=== PATIENT | male | born 1985 | race Caucasian/White ===

== ENCOUNTER 2019-02-22 07:33 | Emergency (ER) | payer OTHER ==
[2019-02-22 07:53] VITALS: BP 148/84
--- NOTE | 2019-02-22 08:05 | UC ---
Eye Complaint HPI - HPI Summary HPI Summary: 33-year-old male who had a foreign body removed from his eye last week from the tire servicer. He states a few days later he developed a stye to his upper eyelid which is almost resolved. He has some swelling to the upper eyelid this morning. No other recent illness no fever no chills. - History of Current Complaint Chief Complaint: UCSkin Stated Complaint: R EYE CONCERN Time Seen by Provider: 02/22/19 08:04 Hx Obtained From: Patient Onset/Duration: Gradual Onset Timing: Constant Severity Initially: Mild Severity Currently: Mild Pain Intensity: 4 Location of Injury: Other - No injury and patient is he had no injury he can recall which would have caused a foreign body in his right cornea. Aggravating Factor(s): Nothing Alleviating Factor(s): Nothing Associated Signs And Symptoms: Positive: Swelling - Very mild swelling of the upper eyelid. - Allergies/Home Medications Allergies/Adverse Reactions: Allergies Allergy/AdvReac Type Severity Reaction Status Date / Time No Known Allergies Allergy Verified 02/22/19 07:43 Home Medications: Home Medications Ryann 500 mg PO DAILY 02/22/19 [History Confirmed 02/22/19] Multivit-Minerals/FA/Lycopene [One Daily Tablet] 1 each PO DAILY 02/22/19 [ History Confirmed 02/22/19] Naproxen Sodium [Naproxen 220 mg] 500 mg PO QAM 02/22/19 [History Confirmed 05/03] PMH/Surg Hx/FS Hx/Imm Hx Previously Healthy: Yes - Surgical History Surgical History: None - Family History Known Family History: Positive: None, Other - Esophageal cancer - Social History Lives: With Family Alcohol Use: Rare Substance Use Type: None Smoking Status (MU): Former Smoker Type: Cigarettes Amount Used/How Often: 1/4 PPD Have You Smoked in the Last Year: Yes Household Exposure Type: Cigarettes - Immunization History Most Recent Tetanus Shot: UTD Vaccination Up to Date: Yes Review of Systems All Other Systems Reviewed And Are Negative: Yes Constitutional: Positive: Negative Eyes: Positive: Other - Minimal swelling to the upper eyelid over the past 2 days. Patient had a stye last week which is almost resolved of the right upper eyelid. She also had a foreign body removed from the right cornea inferior aspect and that has resolved without problems. Is Patient Immunocompromised?: No Physical Exam Triage Information Reviewed: Yes Appearance: Well-Appearing, No Pain Distress, Well-Nourished Vital Signs: Initial Vital Signs Temp 97.5 F 02/22/19 07:46 Pulse 59 02/22/19 07:46 Resp 18 02/22/19 07:46 BP 148/84 02/22/19 07:46 Pulse Ox 100 02/22/19 07:46 Vital Signs Reviewed: Yes Eyes: Positive: Conjunctiva Clear, Other: - PERRLA, EOMI, there is a very small resolving stye to the right upper eyelid, up under the right upper eyelid there is a small reddened ulceration but no secondary skin infection and no drainage. The upper eyelid is minimally swollen with mild redness but is not warm to touch. Psychological Exam: Normal Skin Exam: Normal Eye Complaint Course/Dx - Course Course Of Treatment: Patient is comfortable here. He has been to a local tire servicer last week and I advised him to return there in Sunday for recheck if he feels no better. I believe the small ulceration is or associated with the stye formation and not with the foreign body that he had in his inferior cornea. - Differential Dx/Diagnosis Provider Diagnosis: Hordeolum externum right upper eyelid Discharge - Sign-Out/Discharge Documenting (check all that apply): Patient Departure All imaging exams completed and their final reports reviewed: No Studies - Discharge Plan Condition: Good Disposition: HOME Prescriptions: Tobramycin 0.3% OPHTH.ELBERT* 1 drop RIGHT EYE Q4H 7 Days #1 btl Patient Education Materials: Miguel (ED) Referrals: Kylie Silva NP [Primary Care Provider] - Additional Instructions: Follow up with your ophthamologist Sunday if no improvement. Avoid rubbing your eye - Billing Disposition and Condition Condition: GOOD Disposition: Home
== END 2019-02-22 08:10 | disposition home or self-care (01) ==
LOC: UCCORT 07:33
DX: H00.011 Hordeolum externum right upper eyelid (principal); Z87.891 Personal history of nicotine dependence
CPT/HCPCS: 99212; G0463

== ENCOUNTER 2019-04-28 07:53 | Emergency (ER) | payer OTHER ==
[2019-04-28 08:17] VITALS: BP 143/94
--- NOTE | 2019-04-28 09:49 | UC ---
Skin Complaint HPI - HPI Summary HPI Summary: Nations a 33-year-old gentleman who suggested he was stung above his regular radiologist. Patient states he's had progressive pain and swelling from the ear striding down his right face and jaw. Patient without any difficulty breathing. No wheezing. No lightheaded. No nausea vomiting. Patient took Claritin this morning. Patient hasn't taken anything else for pain. Patient without any difficulties swallowing. Patient medications reviewed this visit. - History of Current Complaint Chief Complaint: UCAllergicReaction Time Seen by Provider: 04/28/19 08:20 Stated Complaint: BEE STING, ALLERGIC REACTION Hx Obtained From: Patient, Family/Embryology Professor, Other: - Patient's by phone. Pain Intensity: 5 Pain Scale Used: 0-10 Numeric - Allergy/Home Medications Allergies/Adverse Reactions: Allergies Allergy/AdvReac Type Severity Reaction Status Date / Time No Known Allergies Allergy Verified 04/28/19 08:17 PMH/Surg Hx/FS Hx/Imm Hx Previously Healthy: Yes - Surgical History Surgical History: None - Family History Known Family History: Positive: None, Other - Esophageal cancer - Social History Occupation: Employed Full-time - Self-employed [employer] Lives: With Family Alcohol Use: Rare Substance Use Type: None Smoking Status (MU): Never Smoked Tobacco Type: Cigarettes Amount Used/How Often: 1/4 PPD Have You Smoked in the Last Year: Yes Household Exposure Type: Cigarettes - Immunization History Most Recent Tetanus Shot: UTD Vaccination Up to Date: Yes Review of Systems All Other Systems Reviewed And Are Negative: Yes Constitutional: Positive: Negative Skin: Positive: Other - Right facial swelling and discomfort Physical Exam - Summary Physical Exam Summary: Vital Signs Reviewed: Yes A+Ox3, no distress Eyes: Conjunctiva Clear, MARK. EOM intact and full ENT: Hearing grossly normal TM x 2 clear, turbinates inflammed, no PND, mmoist , uvula midline, no exudate, no erythema Pt with erythema right anterior ear extending to right mandible/cheeck No crepitus, mild warmth. mild erythema of skin no mastoid pain. no TMJ pain Neck: Positive: Supple Respiratory: Positive: No respiratory distress, No accessory muscle use + CTA throughout no w/r Cardiovascular: RRR nl s1, s2 no m/r CBT <2 sec abd soft + BS nt/nd no guarding, no distension Musculoskeletal Exam: YODER x 4 without difficulty Strength Intact, ROM Intact Neurological: Positive: Alert, + sensation throughout Psychological: Positive: Normal Response To examiner Skin: Positive: no rash, no ecchymosism- right facial erythema, mild edema Triage Information Reviewed: Yes Vital Signs: Initial Vital Signs Temp 99 F 04/28/19 08:13 Pulse 76 04/28/19 08:13 Resp 22 04/28/19 08:13 BP 143/94 04/28/19 08:13 Pulse Ox 100 04/28/19 08:13 Course/Dx - Course Course Of Treatment: Patient presents to urgent care reporting discomfort and swelling outside of a bee sting that was sustained yesterday. Patient took Claritin this morning. Patient not taking cancer pain greater than right eyes. Patient states he feels full in some discomfort. On exam vital signs reviewed. Patient with some localized swelling and mild erythema the right side of face. No fluctuance. No intraoral swelling. No dental pain. No mastoid pain. Cool packs, discussed with patient prednisone, Benadryl, Pepcid recommend patient be rechecked if symptoms progress. Patient comfortable and agreeable with plan.Benadryl precautions given. no nsaid, heat BP mildly elevated - recommend f/u with PCP - Diagnoses Provider Diagnosis: Bee sting reaction Discharge ED - Sign-Out/Discharge Documenting (check all that apply): Patient Departure All imaging exams completed and their final reports reviewed: No Studies - Discharge Plan Condition: Stable Disposition: HOME Prescriptions: Famotidine TAB* [Pepcid 20 MG TAB*] 20 mg PO DAILY #12 tab predniSONE TAB* [Deltasone 20 MG TAB*] 20 mg PO DAILY #11 tab Patient Education Materials: Insect Bite or Sting (ED) Referrals: Kylie Silva, JOANNA [Primary Care Provider] - Additional Instructions: Take prednisone exactly as prescribed until gone - starting today - Okay to take Benadryl (1-2 tablets) every 6 hours as needed. This medication may cause drowsiness - do NOT drive, operate machinery or drink alcohol while taking Benadryl -Take pepcid as prescribed - 2 times daily for 7 days -Avoid getting over heated (hot showers, hot tubs, exercise) for at least 48 hours - Try to avoid aspirin, NSAIDs (Motrin, Aleve, Naprosyn) for 2-3 days - Okay to apply cool compresses to the area of injury - If you develop difficulty breathing, trouble swallowing, swelling in your mouth or any other concerns, go to the emergency department for further evaluation -Contact your doctor or return here with questions or concerns - Billing Disposition and Condition Condition: STABLE Disposition: Home
== END 2019-04-28 08:39 | disposition home or self-care (01) ==
LOC: UCCORT 07:53
DX: S00.86XA Insect bite (nonvenomous) of other part of head, initial encounter (principal); W57.XXXA Bitten or stung by nonvenomous insect and other nonvenomous arthropods, initial encounter; Y92.9 Unspecified place or not applicable
CPT/HCPCS: 99212; G0463